=== PATIENT | male | born 1960 | race Caucasian/White ===

== ENCOUNTER 2023-03-16 08:18 | Emergency (ER) | payer OTHER, SELFPAY ==
[2023-03-16 08:18] VITALS: BP 187/89; PULSE 89; RESP 18; TEMP 35.8; O2SAT 97; BMI 26.6
--- NOTE | 2023-03-16 08:26 | EDS_ITS ---
HPI History of Present Illness Chief Complaint: Laceration Narrative Narrative: 62-year-old male past medical history of psoriasis presents with laceration to his left fifth digit that he sustained just prior to arrival with a circular saw. He states he was working on his daughter's house, trying to trim the edge of a board with a circular saw, and he nicked his left finger, fifth digit. He is unsure of his last tetanus immunization, thinking that it may be 12 to 13 years ago. He denies other injury. He has a bleeding controlled. He is right- hand dominant. He denies other injury. He presents with a laceration to the medial portion of his left fifth digit. He complains of numbness distally after the incident. Tetanus Immunization: >10 years [facility] Medical History (Updated 03/16/23 @ 09:42 by Varun Snider MD) Hyperlipidemia Home Medications cefadroxil 500 mg capsule 1,000 mg (2 x 500 mg) PO BID ##40 02/13/14 [Rx Last Taken Unknown] fenofibrate 160 mg tablet 160 mg PO DAILY 02/13/14 [History Last Taken Unknown] hydrocodone 7.5 mg-ibuprofen 200 mg tablet (Vicoprofen) 1 ea PO Q4H 02/13/14 [History Last Taken Unknown] oxycodone-acetaminophen 5 mg-325 mg tablet 1 - 2 tab PO Q4H PRN PRN Pain #20 tabs 02/13/14 [Rx Last Taken Unknown] atorvastatin 40 mg tablet 40 mg PO DAILY 03/16/23 [History Last Taken Unknown] cephalexin 500 mg capsule 500 mg PO Q6 3 days #12 caps 03/16/23 [Rx Last Taken Unknown] Allergy/AdvReac Type Severity Reaction Status Date / Time tramadol Allergy Hives Verified 03/16/23 08:25 Social History Smoking Status: Former smoker ROS ROS ED ROS Narrative Constitutional: No fever, no chills. HEENT: No sore throat. No neck pain. No loss of vision. No rhinorrhea. Cardiovascular: No chest pain. No palpitations. No pedal edema. Respiratory: No cough, no shortness of breath. Abdominal: No abdominal pain. No nausea. No vomiting. Genitourinary: No dysuria. No hematuria. Musculoskeletal: No myalgias. Left fifth digit laceration. Neurologic: No headaches. No dizziness. No lightheadedness. Skin: No rash. No change in color. Psychiatric: No depression. No anxiety. EXAM Physical Exam Narrative Exam Narrative: Afebrile. Vital signs noted. HEENT: Normocephalic. Atraumatic. PERRL, EOMI. Neck soft and supple. No point tenderness or step off. Cardiovascular: Regular rate and rhythm. No murmurs, rubs, or gallops appreciated. Respiratory: No tachypnea. Lungs clear to auscultation bilaterally. Gastrointestinal: Abdomen soft, nontender, with normoactive bowel sounds. No rebound or guarding. Neurological: Awake. Alert. Nonfocal, nonlateralizing. Skin: No rash. Normal color. No pallor. Musculoskeletal: No pedal edema. Full range of motion extremities. Able to flex and extend digit, fifth, left hand at DIP and PIP. There is an obliquely running laceration approximately 2 cm in the area of the DIP joint. No active bleeding. Good capillary refill, but decreased sensation distal to the laceration. Const Vital Signs: 03/16/23 08:18 Temperature 96.4 F L Temperature Source Temporal Pulse Rate 89 Respiratory Rate 18 Blood Pressure 187/89 H Blood Pressure Mean 121 Pulse Ox 97 Oxygen Delivery Method Room Air MDM MDM MDM Narrative Medical decision making narrative: I do feel he may have severed the neurovascular bundle medially. However, x- rays will be obtained to help rule out open fracture. His tetanus immunization was updated. He declined any analgesics here in the emergency department stating he prefers to take Motrin and use ice. X-rays obtained right ankle of the fifth digit of the left hand in 3 views and interpreted by myself independently shows no evidence of an acute fracture, no open fracture. Exploration of the wound was performed under anesthesia after local infiltration of lidocaine. There are no exposed bone. I do feel that he did suffer the neurovascular bundle however, and he was told he may have permanent numbness of the distal portion of his fingertip. Patient is a physician and acknowledges an understanding. See procedure note for wound closure details. He was told to look for signs of infection. He will have the sutures removed in 7 to 10 days. This wound was dressed with dry, sterile dressing afterwards. As the patient has orthopedic hardware, he requested prophylactic antibiotics in the form of Keflex 4 times a day for the next 3 days. I feel he can be di scharged safely home with follow-up. Return instructions to the emergency department were reviewed. Disposition is discharged home in stable condition. Procedures Lacerations Left fifth digit: Length: 0.79 in Depth: Skin Shape: Linear Prep: Sterile Conditions Laceration repair: Irrigated (Soaked), Lidocaine and Local Number of Sutures/Mead: 6 Suture Information: Ethilon, Simple and 4-0 Comment: Patient tolerated procedure well. Discharge Plan Triage Chief Complaint: Laceration ED Provider: Varun Snider Dx/Rx/DC Orders Clinical Impression: Finger laceration, Contact with powered saw as cause of accidental injury Instructions: ED Laceration, Hand: All Closures Prescriptions: New cephalexin 500 mg capsule 500 mg PO Q6 3 Days Qty: 12 0RF No Action hydrocodone-ibuprofen [Vicoprofen] 1 EACH tablet 1 ea PO Q4H fenofibrate 160 MG tablet 160 mg PO DAILY Patient Comments: TK 1 T PO QD oxycodone-acetaminophen 1 TABLET tablet 1 - 2 tab PO Q4H PRN PRN (Reason: Pain) Qty: 20 0RF cefadroxil 500 MG capsule 1,000 mg PO BID Qty: 40 0RF atorvastatin 40 mg tablet 40 mg PO DAILY Patient Comments: TAKE ONE TABLET BY MOUTH DAILY Primary Care Provider: Jose De Jesus Luke Referrals: Leonard Hamilton MD [Non-Staff] - 10 Day for suture removal Disposition Disposition: Home, Self Care Discharge Date/Time: 03/16/23 09:51
[2023-03-16] MEDS: Diphth,Pertuss(Acell),Tet Vac 0.5 ML Vial IM (08:30)
[2023-03-16] MEDS: Lidocaine 1% (20 ml mdv) 20 ML Vial INFILT (08:30)
--- NOTE | 2023-03-16 08:45 | RAD_ITS ---
EXAM: XR LEFT FIFTH FINGER COMPLETE, 3 VIEWS CLINICAL INDICATION: Trauma injury TECHNIQUE: Frontal, lateral and oblique views of the left fifth finger. COMPARISON: No relevant prior studies available. FINDINGS: BONES/JOINTS: Unremarkable. No acute fracture. No subluxation. Normal alignment. Preservation of the joint space. No sclerotic or destructive changes observed. SOFT TISSUES: Unremarkable. No soft tissue swelling or gas. No radiopaque foreign body. RAD/Finger(s) Min 2 Views IMPRESSION: No acute fracture or dislocation of the left fifth finger. Electronically Signed: Varun Prakash MD at 10:41 EDT ,
[2023-03-16 09:50] VITALS: BP 140/83; PULSE 67; RESP 18; O2SAT 97
== END 2023-03-16 09:51 | disposition home or self-care (01) ==
PROVIDERS: Emergency Provider Emergency Medicine; PCP Family Medicine; Visit Provider Emergency Medicine
DX: S61.217A Laceration without foreign body of left little finger without damage to nail, initial encounter (principal); Z87.891 Personal history of nicotine dependence; E78.5 Hyperlipidemia, unspecified; W29.8XXA Contact with other powered hand tools and household machinery, initial encounter; Y93.89 Activity, other specified; Y92.019 Unspecified place in single-family (private) house as the place of occurrence of the external cause; Z79.899 Other long term (current) drug therapy; Z23 Encounter for immunization
CPT/HCPCS: 12001; 73140; 90471; 90715; 99283